=== PATIENT | male | born 1990 | race Caucasian/White ===

== ENCOUNTER 2024-01-28 19:51 | Emergency (ER) | payer OTHER ==
[~2024-01-28] VITALS: Ht 175.2 cm; Wt 75.7 kg
[2024-01-28] MEDS ORDERED: OFLOXACIN 0.3% 5 ML BOTTLE OPH ONE (20:55)
== END 2024-01-28 21:06 | disposition home or self-care (01) ==
LOC: ED 19:51
DX: T15.81XA Foreign body in other and multiple parts of external eye, right eye, initial encounter (principal); F41.9 Anxiety disorder, unspecified; F90.9 Attention-deficit hyperactivity disorder, unspecified type; F31.9 Bipolar disorder, unspecified; F12.10 Cannabis abuse, uncomplicated; F17.200 Nicotine dependence, unspecified, uncomplicated; F14.90 Cocaine use, unspecified, uncomplicated; F19.10 Other psychoactive substance abuse, uncomplicated; Z98.890 Other specified postprocedural states; Z90.89 Acquired absence of other organs; W44.8XXA Other foreign body entering into or through a natural orifice, initial encounter; Y93.89 Activity, other specified; Y92.89 Other specified places as the place of occurrence of the external cause; Y99.0 Civilian activity done for income or pay